=== PATIENT | male | born 1980 | race Caucasian/White ===

== ENCOUNTER 2018-01-04 15:57 | Inpatient (IN) | payer OTHER ==
[~2018-01-04] VITALS: Ht 190.5 cm; Wt 73.5 kg
[2018-01-04 16:00] VITALS: BP 112/68
--- NOTE | 2018-01-04 16:09 | NUR ---
[place] [employer] CALLED, PT COMBATIVE. HANDCUFFED TO BED BEFORE GALINDO GIVEN RESTRAINTS APPLIED WITH HELP OF SECURITY AND PD OFFICER
--- NOTE | 2018-01-04 16:19 | NUR ---
[place] STAFF REGISTERED NURSE NOTIFIED OF PT'S STATEMENT OF "THEY'RE ALL " AND SAID A WELFARE CHECK WILL BE PLACED WITH [facility]
[2018-01-04 16:42] LABS: HEMATOCRIT 44.4 % (42.0-52.0); HEMOGLOBIN 14.7 gm/dL (14.0-18.0); MCH 31.9 pg (26.0-34.0); MCHC 33.2 g/dL (28.0-37.0); MCV 96.3 fL (80.0-100.0); MPV 8.4 fl. (7.2-11.1); RBC 4.61 mil/uL (4.50-6.00); RDW-CV 13.9 % (10.5-14.5); WBC 11.7 thou/uL (4.0-11.0)
[2018-01-04 16:59] LABS: ANION GAP < 0 mmol/L (7-16); BUN 18 mg/dL (7-18); CALCIUM 8.7 mg/dL (8.5-10.1); CHLORIDE 100 mmol/L (98-107); CO2 29 mmol/L (21-32); CREATININE 0.9 mg/dL (0.6-1.3); GLUCOSE 103 mg/dL (70-99); POTASSIUM 3.3 mmol/L (3.5-5.1); SODIUM 123 mmol/L (136-145)
[2018-01-04 17:04] LABS: ALBUMIN 3.7 g/dL (3.4-5.0); ALKALINE PHOSPHATASE 79 U/L (46-116); SGOT 39 U/L (15-37); SGPT 32 U/L (30-65); TOTAL BILIRUBIN 0.2 mg/dL (<0.1-1.0)
[2018-01-04 17:14] LABS: ALCOHOL 305 mg/dL (<10); SALICYLATE 4.2 mg/dL (2.8-20.0)
[2018-01-04 17:16] LABS: ACETAMINOPHEN < 2 ug/mL (10-30)
[2018-01-04 17:20] LABS: URINE BILIRUBIN NEGATIVE (Negative); URINE BLOOD NEGATIVE (Negative); URINE CLARITY CLEAR; URINE COLOR YELLOW; URINE GLUCOSE-RANDOM NEGATIVE (Negative); URINE KETONES NEGATIVE (Negative); URINE LEUKOCYTES NEGATIVE (Negative); URINE NITRITE NEGATIVE (Negative); URINE PROTEIN NEGATIVE (Negative); URINE SPECIFIC GRAVITY <= 1.005 (1.005-1.030); URINE UROBILINOGEN 0.2 E.U./dl (0.2-1.0)
[2018-01-04 17:27] LABS: AMP/METHAMP POSITIVE (Negative); BARBITURATES Negative (Negative); BENZODIAZEPINES Negative (Negative); COCAINE Negative (Negative); METHADONE Negative (Negative); OPIATES Negative (Negative); PCP Negative (Negative); THC Negative (Negative)
[2018-01-04 21:19] VITALS: BP 126/83
--- NOTE | 2018-01-04 21:32 | NUR ---
PATIENT ARRIVED TO UNIT @ 2118. PT DROWSY, AGITATED REFUSING TO KEEP EYES OPEN AND ANSWER ADMITING QUESTIONS PT YELLED "LEAVE ME ALONE LET ME I AM DONE ANSWERING ANYMORE QUESTIONS" PT ABLE STATE NAME, , YEAR, MONTH NOT ABLE TO STATE DAY OF THE WEEK. PT VITAL SINGS WITHIN RANGE. ON ROOM AIR O2 SAT 99%. WILL CONTINUE TO MONITOR CLOSELY SITTER IN ROOM.
[2018-01-04 21:42] VITALS: BP 107/69
[2018-01-04 22:04] VITALS: BP 107/61
[2018-01-05] VITALS (16 sets, daily range): BP systolic 97–125; BP diastolic 53–80
[2018-01-05 05:07] LABS: HEMATOCRIT 40.4 % (42.0-52.0); HEMOGLOBIN 13.1 gm/dL (14.0-18.0); MCH 31.1 pg (26.0-34.0); MCHC 32.3 g/dL (28.0-37.0); MCV 96.2 fL (80.0-100.0); MPV 8.5 fl. (7.2-11.1); RBC 4.2 mil/uL (4.50-6.00); RDW-CV 14.1 % (10.5-14.5); WBC 7.6 thou/uL (4.0-11.0)
--- NOTE | 2018-01-05 05:14 | NUR ---
PATIENT CURRENTLY SLEEPING IN BED WITH SITTER IN ROOM. PT CIWA SCORE NOW 10. LORAZEPAM GIVEN CIWA SCORE DECREASING. VITAL WNL. VOIDING ADEQUATELY PER BEDSIDE COMMODE. PT REFUSED SECOND IV LAST NIGHT PT STATED "JUST LEAVE ME ALONE I DONT WANT YOU TO TOUCH ME OR DO ANYTHING TO ME LET ME " PT RECIEVED EDUCTION ON RISKS. NEEDS FURTHER EDUCATION. BED TO LOWEST POSITION. SITTER IN ROOM. NO FURTHER CONCERNS VOICED AT THIS TIME.
[2018-01-05 05:31] LABS: CALCIUM 8.3 mg/dL (8.5-10.1); CREATININE 0.8 mg/dL (0.6-1.3); MAGNESIUM 2.2 mg/dL (1.8-2.4); PHOSPHORUS* 2.7 mg/dL (2.5-4.9); TOTAL BILIRUBIN 0.2 mg/dL (<0.1-1.0); TOTAL PROTEIN 5.9 g/dL (6.4-8.2)
[2018-01-05 08:58] LABS: POTASSIUM 3.8 mmol/L (3.5-5.1)
--- NOTE | 2018-01-05 10:32 | NUR ---
PT DROWSY. ALERT TO PERSON, PLACE, YEAR, MONTH. CIWA CHARTED. SCHEDULED PO ATIVAN ADMININSTERED. SITTER IN PLACE. VSS. AFEBRILE. FLUIDS CHANGED AND CONFIMRED WITH DR. WILL CONTINUE PLAN OF CARE.
--- NOTE | 2018-01-05 10:45 | NUR ---
PT.SLEEPING. CM DID NOT SPEAK WITH PT. NURSING SAID HE WAS NOT BEING VERY REPOSNSIVE TO QUETIONS OR CONVERSATION DUE TO HIS INTOXICATION. NO CONTACT INFORMATION FOR PT. ON DEMOGRAPHICS. ADMITTING AWARE AND ASK THAT WHEN PT.MORE REPONSIVE TO TRY TO OBTAIN THIS INFORMATION. PT.ALSO NEEDS SECOND AFFIDAVIT FOR CHART IF MAKING ANY SUICIDAL OR HOMICIDAL STATEMENTS/REMARKS.
[2018-01-05 11:16] LABS: POTASSIUM 4.2 mmol/L (3.5-5.1)
--- NOTE | 2018-01-05 11:29 | NUR ---
Nutrition: Consult received for poor intake. Pt admitted with SI, ETOH. Eating 90% BKFST. Albumin 3. , banana bag. Wt: 157#. No nutritional interventions at this time. Will get psych eval. Will follow per protocol.
[2018-01-05 14:11] LABS: POTASSIUM 3.8 mmol/L (3.5-5.1)
[2018-01-05 18:10] LABS: POTASSIUM 3.9 mmol/L (3.5-5.1)
--- NOTE | 2018-01-05 19:02 | NUR ---
SITTER IN PLACE THIS SHIFT. PO ATIVAN ADMINISTERED PER EMAR. CIWAS CHARTED. STARTING AT 1830 PT ASKING FOR MEDICATION TO HELP CALM HIM DOWN. PO AND IV ATIVAN ADMINISTERED PER EMAR. PT UP SBA TO BSC.
[2018-01-06 01:23] VITALS: BP 118/67
[2018-01-06 02:53] VITALS: BP 113/84
[2018-01-06 04:23] VITALS: BP 112/71
--- NOTE | 2018-01-06 05:41 | NUR ---
PATIENT SLOWLY PROGRESSING. ORIENT X4, VS WNL, CIWA 13 PT STATES HE IS SEEING A LITTLE BOY IN HIS ROOM BUT ACKNOWLEDGES HE IS HALLUCINATING, CONTINUES EXPERIENCING RINGING IN EARS, SKIN FEELS ITCHY AND PT IS VERY ANXIOUS. ATIVAN GIVEN PER PROTOCOL. ADDED NICOTINE PATCH THIS A.M PER PATIENT REQUEST. VOIDS PER URNAL. NEW IV STARTED D5 WATER RUNNING. CURRENTLY PT IS SLEEPING, SITTER IN ROOM. BED TO LOWEST POSITION. WILL CONTINUE TO MONITOR.
[2018-01-06 06:57] LABS: HEMATOCRIT 39.1 % (42.0-52.0); HEMOGLOBIN 12.9 gm/dL (14.0-18.0); MCH 31.2 pg (26.0-34.0); MCHC 32.9 g/dL (28.0-37.0); MCV 94.7 fL (80.0-100.0); MPV 8.6 fl. (7.2-11.1); RBC 4.12 mil/uL (4.50-6.00); RDW-CV 13.4 % (10.5-14.5); WBC 6.8 thou/uL (4.0-11.0)
[2018-01-06 07:13] LABS: ALBUMIN 2.8 g/dL (3.4-5.0); CALCIUM 8.2 mg/dL (8.5-10.1); CREATININE 0.9 mg/dL (0.6-1.3); MAGNESIUM 1.9 mg/dL (1.8-2.4); POTASSIUM 3.6 mmol/L (3.5-5.1); TOTAL BILIRUBIN 0.6 mg/dL (<0.1-1.0); TOTAL PROTEIN 5.6 g/dL (6.4-8.2)
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
[2018-01-06 20:00] VITALS: BP 115/61
[2018-01-06 21:00] VITALS: BP 122/72
[2018-01-06 22:00] VITALS: BP 128/80
[2018-01-07] VITALS: BP 128/89
[2018-01-07 02:00] VITALS: BP 128/88
[2018-01-07 04:00] VITALS: BP 110/61
[2018-01-07 04:45] LABS: POTASSIUM 3.8 mmol/L (3.5-5.1)
[2018-01-07 10:55] VITALS: BP 120/81
--- NOTE | 2018-01-07 11:19 | NUR ---
RECEIVED REPORT FROM BRITNEY IN ICU AND ASSUMED CARE OF PT @ 3249.PT IS A/O X4 BUT STATES HE IS ANXIOUS AND REQUESTED ATIVAN.PT WAS EDUCATED ON NEXT AVALIABLE TIME HE COULD RECEIVE IT.VSS,TRACING SR ON THE MONITOR.ASSESSMENT FROM PREVIOUS NURSE REVIEWED AND THIS NURSE AGREES.IV RIGHT WRIST PATENT WITH FLUIDS INFUSING PER ORDERS.IV LEFT WRIST DC DUE TO INFILTRATION.PT IS CALM AND COOPERATIVE WITH NO C/O PAIN AT TIME OF ASSESSMENT.PT IS UP WITH SBA TO BATHROOM.SITTER MAINTAINED FOR SI PRECAUTIONS.PT LEFT RESTING IN BED WITH CALL LIGHT AND FALL PRECAUTIONS IN PLACE.WILL CONTINUE TO MONITOR.
[2018-01-07 16:00] VITALS: BP 112/78
--- NOTE | 2018-01-07 18:09 | NUR ---
VSS,CARDIAC MONITORING IN PLACE WITH NO CHANGES.CIWA COMPLETED PER ORDERS.PT IS HAVING INCREASED ANXIETY AND AGITATION-PRN ATIVAN GIVEN.C/O PAIN IN LEFT UPPER ARM-MANAGED WELL WITH PO MEDICATIONS.IV PATENT WITH MULTIVITAMIN BAG INFUSING PER ORDERS.SITTER MAINTAINED FOR SI.TELE PSYCH COMPLETED WITH RECOMMENDATIONS FOR INPATIENT PSYCH.HOURLY ROUNDING COMPLETED FOR PT SAFETY.CALL LIGHT AND FALL PRECAUTIONS IN PLACE.WILL CONTINUE TO MONITOR FOR DURATION OF SHIFT.
[2018-01-07] MEDS ORDERED: SEROQUEL200 MG PO (19:47)
[2018-01-07 20:00] VITALS: BP 114/72
[2018-01-08 00:14] VITALS: BP 138/81
--- NOTE | 2018-01-08 03:59 | NUR ---
PT ALERT ORIENTED. PT CALLING OUT FOR PAIN MEDICATION AND ATIVAN WHEN EVER AWAKE. HEALING L UPPER ARM WOUND FROM TATOO. R UPPER ARM CLEANSED WITH WOUND TRANSMISSION SUPERVISOR AND KERLEX WRAPPED. PT GETTING HYDROCODONE FOR PAIN. PT REQESTING DR BE WOKE FOR MORE PAIN MEDICATION. PT ALSO GETTING ATIVAN FOR CIWA. PT SLEEPING AND APPEARS TO BE VERY MEDICATED. TELEMETRY SHOWS SR. ON RA.
[2018-01-08 04:15] VITALS: BP 123/68
--- NOTE | 2018-01-08 04:24 | NUR ---
PT PICKING AT WOUND. PT REMINDED THAT HIS FINGERNAILS ARE DIRTY AND NOT TO PICK AT WOUND BED. PINK GRANULATED TISSUE. DOES NOT HAVE APPERANCE OF INFECTION AT THIS TIME. DRSG APPLIED. PT REMOVED. NEW DRSG APPLIED.
--- NOTE | 2018-01-08 06:23 | NUR ---
1:1 sitter with pt all through out this shift. Suicide precautions in place. D5 infusing at 50mls/hr.
[2018-01-08 08:15] VITALS: BP 121/85
--- NOTE | 2018-01-08 09:36 | NUR ---
PT BELIGERENT TO STAFF ASKING TO MAKE PHONE CALL. PT EDUCATED ON SUICIDE PRECAUTIONS AND INFORMED HE CANNOT HAVE PHONE. PT PROVIDED PHONE NUMBER FOR HIS NUMBER BUT THAT NUMBER HAS BEEN DISCONNECTED.PT ASKING THAT HIS CONSULTANT [employer]LECT[employer] AT [facility] BE CALLED. WILL NOTIFY CASE MANAGEMENT. PT ASKING TO LEAVE. INFORMED PT HE IS SI AND CANNOT SIGN OUT AMA
--- NOTE | 2018-01-08 10:11 | NUR ---
SPOKE WITH PT'S MOTHER IVA LAW PER HIS REQUEST. MOTHER GIVEN A BRIEF OVERVIEW OF WHY PT IS IN HOSPITAL AND PLAN. MOTHER TO CALL BACK WITH A LIST OF PT'S HOME PSYCH MEDS.
--- NOTE | 2018-01-08 11:13 | NUR ---
PT CONTINUALLY CALLS FOR ANXIETY AND PAIN MEDS DESPITE BEING GIVEN MEDS ORDERED
--- NOTE | 2018-01-08 11:25 | NUR ---
WOUND CARE NOTE: CONSULT RECEIVED FOR AN INFECTED TATTOO. PATIENT PRESENTS WITH MULTIPLE OPEN LESIONS TO THE LEFT LATERAL UPPER ARM. PATIENT HAS RECENTLY OBTAINED A TATTOO IN THE SAME LOCATION. COMPARED TO THE PHOTOS ON CHART, INFLAMMATION TO ALEIDA-WOUND APPEARS TO HAVE RESOLVED. PATIENT NOW HAS MULTIPLE LESIONS TO THIS AREA, CLUSTERED ARE MEASURED 7.5X7X0.2. PINK, MOIST GRANULAR TISSUE NOTED, APPEARS TO BE HEALING WELL. ALEIDA-WOUND DOES HAVE SCABS. GENTLY CLEANSED THE WOUNDS, PATTED DRY. APPLIED OPTIFOAM AG AND SECURED WITH ROLL GAUZE. EDUCATED PATIENT ON LEAVING DRESSING IN PLACE. WHEN ENTERING ROOM FOR WOUND ASSESSMENT, PATIENT HAD REMOVED HIS DRESSING. PATIENT COMMUNICATED UNDERSTANDING, BUT COMPLAINS OF PAIN TO THIS AREA. PATIENT DOES NOT FEEL THAT HIS PAIN/ANXIETY ARE BEING WELL CONTROLLED AND STATED IF THEY WEREN'T HE WOULD JUST LEAVE. NOTIFIED PATIENT'S RN AND PHYSICIAN. RECOMMEND ENCOURAGE GOOD NUTRITION/HYDRATION ENCOURAGE SMOKING CESSATION Q3 DAY DRESSING CHANGES
[2018-01-08 12:00] VITALS: BP 137/85
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
--- NOTE | 2018-01-08 13:38 | NUR ---
AMMUNITION ASSEMBLY II LABORER INFORMED THAT THE PATIENT IS MEDICALLY STABLE AND READY TO TRANSFER TO INPATIENT PSYCH. PATIENT INFORMS THAT HE HAS A HX AT [facility] AND ALSO HAS A MANAGER ELIGIBILITY (DOMINICK) THERE. D/C GLOBE MOUNTER SPOKE TO MARY KAY WITH [facility] AND SHE INFORMS THAT [facility] NOT CURRENTLY HAVE BED AVIALABILITY, BUT WILL ACCEPT THE REFERRAL IN-CASE A BED BECOMES AVAILABLE LATER ON TODAY. D/C GLOBE MOUNTER ALSO SPOKE TO FARSHAD WITH [facility]. FARSHAD INFORMS THAT THE FACILITY HAS BED AVIALABILITY. D/C NIURKA SPOKE TO ABEL WITH [facility] AND SHE INFORMS THAT THE FACILITY HAS BED AVAILABILITY. D/C GLOBE MOUNTER FAXED PATIENT'S FACESHEET, E.R. SUMMARY, H&P, PROGRESS NOTE, VITALS, LABS, AND MED LIST TO [facility], AND [facility]. CM WILL REMAIN AVAILABLE TO ASSIST AND FOLLOW NEEDED.
--- NOTE | 2018-01-08 14:00 | NUR ---
PT ASKING FOR "DILAUDID OR SOMETHING STRONGER" FOR PAIN AND "SOMETHING STRONGER THAN ATIVAN". DR WEI AWARE. NO CHANGES MADE TO PAIN MEDICATIONS
[2018-01-08] MEDS ORDERED: VISTARIL 25 MG25 M1 PO (14:50)
[2018-01-08] MEDS ORDERED: QUETIAPINE FUM100 MG PO (14:50)
[2018-01-08] MEDS ORDERED: NEURONTIN 300300 M1 PO (14:51)
--- NOTE | 2018-01-08 14:51 | NUR ---
SPOKE WITH PT'S MOTHER IVA WHO PROVIDED A LIST OF PT'S HOME MEDICATIONS. SHE VOICES CONCERNS OVER PT BEING GIVEN "ADDICTIVE" PAIN AND ANXIETY MEDICATIONS.
[2018-01-08 15:30] VITALS: BP 125/75
--- NOTE | 2018-01-08 15:40 | NUR ---
PT BELIGERENT TO STAFF REQUESTS ADDITIONAL PAIN MEDICATIONS. INFORMED PT AFTER DISCUSSION WITH NO ADDITIONAL PAIN MEDS WILL BE GIVEN. PT ENCOURAGED TO REFRAIN FROM TOUCHING DRESSING TO LEFT ARM HE CONTINUES TO REMOVE IT. "IT HURTS! I'M ABOUT TO BANG MY HEAD AGAINST THE FUCKING WINDOW!" INFORMED PT THAT IF HE ATTEMPTS TO HURT HIMSELF HE WILL BE RESTRAINED FOR SAFETY. SITTER REMAINS AT BS. MEDS GIVEN ORDERED
--- NOTE | 2018-01-08 16:15 | NUR ---
PT YELLING AT STAFF. ASKING TO CALL HIS MOTHER. PT INSTRUCTED THAT HE CANNOT HAVE A PHONE HE IS ON SI PRECAUTIONS. PT'S MOTHER IS AWARE OF ROOM NUMBER BUT HAS NOT VISITED.PT REQUESTING ADDITIONAL PAIN MEDS AND ANXIETY MEDS. ACCUSING STAFF OF GIVING HIM "SUGAR PILLS" . PT INSTRUCTED THAT MEDS WERE OPENED AT AND GIVEN DIRECTED. PT INSISTING THAT DR BE CALLED AND ASKED FOR ADDITIONAL PAIN MEDS. DR WEI IS AWARE OF REQUEST BUT PAGED. INFORMED PT THAT MAY NOT BE AVAILABLE TO COME TO HIS ROOM AND TALK TO HIM HE MAY NOT BE IN THE HOSPITAL
--- NOTE | 2018-01-08 16:59 | NUR ---
PT UP IN ROOM WITH STEADY GAIT. SITTER REMAINS AT BS FOR SAFETY. PT CONTINUES TO REPORT PAIN TO LUE AND ANXIETY. PT MANIPULATIVE TO STAFF. TOLERATING PO WELL.
--- NOTE | 2018-01-08 17:47 | NUR ---
PT REQUESTING IVF BE TURNED OFF. PT TOLERATING PO WELL
[2018-01-08 20:00] VITALS: BP 124/75
--- NOTE | 2018-01-09 02:21 | NUR ---
ASSUMED CARE OF PATIENT AT 1900. VSS, AFEBRILE. PATIENT ANIXOUS, AGITATED, RESTLESS, CONSUMED WITH THE IDEA THAT HE IS CRAVING ICE CREAM. WHEN ASKED ABOUT SUICIDAL IDEATION, HE STATES HE IS BECAUSE HE IS "SAD". CANNOT IDENTIFY WHY. ASKED IF HE HAD A PLAN, HE STATED "NOT YET". PRN ANXIETY AND PAIN MEDS GIVEN, FELL ASLEEP AT ABOUT 2300. SITTER AT BEDSIDE. NEEDS CONSTANT REASSURANCE WHEN AWAKE. WHEN ASKED ABOUT PLANS FOR SOBRIETY AFTER DISCHARGE HE STATES THAT HE MIGHT CONSIDER OUTPATIENT. ASKED IF HE LIVED ANYWHERE AND HE SAID HE LIVED IN A TRANSITIONAL HOUSE. NOT PROGRESSING TOWARDS POC GOALS. WILL CONTINUE TO MONITOR.
[2018-01-09 04:00] VITALS: BP 128/68
--- NOTE | 2018-01-09 09:17 | NUR ---
SPOKE WITH PT TO VERIFY HIS SSN AND ADDRESS. INFO PROVIDED. 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 WILL CALL TO SEE WHAT PLAN IS IN PLACE FOR PT. PT REQUESTS THAT PAPERWORK BE FAXED TO [facility] IN [facility] HE HAS BEEN THERE IN THE PAST
--- NOTE | 2018-01-09 11:14 | NUR ---
RECEIVED CALL FROM [facility], THEY DECLINED PT. CM CALL TO [facility], STILL HAVE NO BEDS. CALLS AND FAXED REFERRALS TO [facility] AND [facility]. AWAIT CALLS BACK
[2018-01-09 11:23] VITALS: BP 133/80
[2018-01-09 15:24] VITALS: BP 139/75
--- NOTE | 2018-01-09 15:47 | NUR ---
CALLED AND FAXED REFERRAL TO [facility] [place] [phone] FAX [phone] AWAIT CALL BACK FROM [facility] [phone] FAX [phone] PAGE OUT TO LEFTY PSYCH AGAIN ALSO DENIALS: [facility], [facility] ([facility] AND [facility]), [facility] (NO BEDS), [facility]. [facility] HAS HAD NO BEDS YESTERDAY OR TODAY [facility] DOESN'T TAKE PRIVATE PAY.
--- NOTE | 2018-01-09 18:39 | NUR ---
PATIENT RESTING IN ROOM WITH 1:[address] FOR SI[address] PATIENT AWAITKNG INPATIENT PSYCH TRANSFER. VITAL SIGNS STBALE NAD HOURLY ROUNDING COMPLETED FOR PATINET SAFETY. PATIETN FREQUENTLY CALLS OUT FOR ANXIETY MEDICATION AND PAIN MEDICATION. PATIENT NEEDED FREQUENT REORIENTATION TO MAINTAIN CALM AND APPROPRIATE INTERACTIONS WITH STAFF. NO INCIDENCE OF NEEDED SECURITY HELP TODAY PATIENT WAS COOPERATIVE.
[2018-01-09 19:37] VITALS: BP 144/78
[2018-01-10] VITALS (7 sets, daily range): BP systolic 97–138; BP diastolic 52–95
--- NOTE | 2018-01-10 02:09 | NUR ---
ASSUMED CARE OF PATIENT AT 1900. VSS, AFEBRILE. ANXIOUS, AGITATED AT TIMES. FREQUENTLY REQUESTING PAIN MEDS AND ANXIETY MEDS. BECOMES HOSTILE AT TIMES, DIFFICULT TO REDIRECT AT TIMES. SITTER AT BEDSIDE. POC GOALS DISCUSSED. WILL CONTINUE TO MONITOR CLOSELY.
--- NOTE | 2018-01-10 09:07 | NUR ---
SPOKE WITH MARYSE/[facility]. FAXED UPDATED CLINICAL TO HER. SHE STATED SHE WOULD HAVE AN ANSWER AFTER 10AM
--- NOTE | 2018-01-10 09:16 | NUR ---
RECEIVED REPORT FROM KAROLINA AND ASSUMED CARE OF PT @ 0802.PT IS A/O X4,VSS,TRACING SR ON THE MONITOR.ASSESSMENT CHARTED.IV LEFT FOREARM PATENT WITH IVF INFUSING PER ORDERS.SITTER MAINTAINED.SI PRECAUTIONS IN PLACE. PT IS ANXIOUS AND AGITIATED-MEDICATIONS GIVEN AND INFORMED OF PLAN OF CARE.PT COMMUNICATES UNDERSTANDING BUT NEEDS REINFORCEMENT.PT KEEPS ASKING TO HAVE HIS CELL PHONE-NURSE KEEPS REEDUCATING PT ON THE SI PROTOCOL.PT C/O PAIN IN LEFT UPPER ARM-MEDICATIONS GIVEN.PT IS UP SBA IN ROOM. PT LEFT RESTING IN BED WITH CALL LIGHT AND FALL PRECAUTIONS IN PLACE.WILL CONTINUE TO MONITOR.
[2018-01-10] MEDS ORDERED: BACTRIM DS TAB1 EACH PO (10:53)
[2018-01-10] MEDS ORDERED: NORCO 5-325 TA1 EACH PO (10:54)
[2018-01-10] MEDS ORDERED: CELEXA20 MG PO (11:04)
--- NOTE | 2018-01-10 13:17 | NUR ---
PER REPEAT PSYCH CONSULT, PT STILL IN NEED OF INPT. HE IS AGREEABLE TO PER MIAH CISNEROS. CALLS AND REFERRALS TO THE FOLLOWING: [facility], THEY DECLINED [facility], THEY DECLINED [facility], THEY ARE FULL [facility], THEY ARE FULL [facility], REFERRAL FAXED AT 1205 [facility], REFERRAL FAXED AT 1230 JOSHUA GUSTAVO [facility], REFERRAL FAXED AT [address] WEI
--- NOTE | 2018-01-10 15:11 | NUR ---
TELE PSYCH RECONSULTED.PSYCH STILL RECOMMENDING INPATIENT PLACEMENT.PT MADE MED-SURG STAUTS.PT GETTING MORE ANXIOUS AND AGITATED THROUGHOUT SHIFT.PT HAS STATED HE WAS GOING TO GO OUTSIDE TO SMOKE ALL MORNING.NURSE EDUCATED PT ON SI PRECAUTIONS AND HOSPITAL POLICIES.PT ABLE TO BE REDIRECTED AT THAT TIME.PT REQUESTING DOCTOR TO BE CALLED TO ORDER HIM SOMETHING TO HELP HIM "CHILL OUT".PT BEGAN TO RAISE VOICE AND JUMPED OUT OF BED AND STATED HE WAS LEAVING.MARY HARRINGTON CALLED.NURSE WAS ABLE TO CALM PT AND GET HIM BACK IN BED.DOCOTOR NOTIFIED OF EVENT.NEW ONETIME MEDICATION ORDERS RECEIVED.PT RESTING IN BED WITH SITTER IN PLACE.
--- NOTE | 2018-01-10 18:02 | NUR ---
VSS,MED-SURG STATUS.SITTER MAINTAINED.SI PRECAUTIONS IN PLACE. SECURITY CALLED TO DISCUSS WITH PT THAT HE CANT LEAVE AND CANT MAKE PHONE CALLS.CASEMANAGEMENT HAS SEVERAL PLACEMENT REQUESTS OUT.HOURLY ROUNDING COMPLETED FOR PT SAFETY.CALL LIGHT AND FALL PRECAUTIONS IN PLACE. WILL CONTINUE TO MONITOR FOR DURATION OF SHIFT.
--- NOTE | 2018-01-11 03:38 | NUR ---
RECIEVED REPORT AND ASSUMED CARE AT 1900. BP LOW, OTHER THAN THAT VITAL SIGNS STABLE. PT UP WITH STAND BY ASSIST, HAS SITTER IN ROOM. ASSESSMENT COMPLETED AND DISCUSSED PLAN OF CARE AND PT UNDERSTANDS. PT KEPT WANTING TO GO OUT AND SMOKE AND WANTING TO CALL FAMILY TO BRING HIM SMOKES. PT C/O ANXIETY AND PRN MEDS GIVEN ORDERED. PT ON RA. PAIN C/O LEFT ARM PAIN FROM SKIN INFECTION DUE TO HOME TATTOO. BED LOCKED AND SITTER WTIH PT IF HE NEEDS ANYTHING. HOURLY ROUNDING DONE AND ALL NEEDS MET. NURSING WILL CONTINUE TO MONITOR.
--- NOTE | 2018-01-11 09:01 | NUR ---
HOSPICE ADMINISTRATOR CALLED TO F/U ON REFERRALS SENT TO INPATIENT PSYCH: [facility]-NO ANSWER. D/C LOGISTICS ENGINEER LEFT MESSAGE TO RETURN CALL. [facility] PSYCH-SPOKE TO NICOLAS 'PATIENT IS OUT OF THE ENCATCHMENT AREA, BUT MARCO HOGAN WILL RETURN CALL TO DISCUSS FURTHER'. [facility]-SPOKE TO HAYLIE 'DECLINED D/T ACU[facility]'. [facility] INTAKE-NO ANSWER, LEFT MESSAGE TO RETURN CALL. CM WILL REMAIN AVAILABLE TO ASSIST AND FOLLOW NEEDED.
--- NOTE | 2018-01-11 09:22 | NUR ---
CONTINUE TO FOLLOW, DISCUSSED WITH DR CAGE. HAVE BEEN UNABLE TO FIND INPT PSYCH PLACEMENT. CALLS PENDING FROM YESTERDAY RETURNED AND: [facility], PT IS OUT OF THEIR CATCHMENT AREA [place]-NO RETURN CALL, HAVE LEFT ANOTHER MESSAGE [facility] IN [place]- NO BEDS, MAY HAVE SOME LATER, CAN CALL AFTER 2PM WAS ABLE TO TALK WITH PT'S INSPECTOR WREATH AT [facility]/DOM[facility]. SHE STATED THEY HAVE DISCHARGED PT. SHE REPORTS THAT HE HAS BEEN WITH THEIR SERVICE FOR A YEAR OR MORE, THAT HE HAS A 'TYPICAL CYCLE' OF STAYING SOBER IN A SOBER LIVING HOUSE, FINDING WORK AND THEN LEAVING WHEN IT'S TIME TO 'PAY HIS SHARE.' STATES HE LEFT THE [facility] ON 12/29. SHE STATES HIS 'PATTERN' IS THEN TO DRINK ETOH AND STATE HE IS 'SUICIDAL' AND GET ADMITTED TO HOSPITAL. DOMINICK STATED PT HAS BEEN IN 'EVERY' PSYCH FACILITY AND SOBER HOUSE IN THE AREA OVER THE LAST FEW YEARS. HE HAS A SUPPORTIVE MOTHER WHO MAY BE AN 'ENABLER' AND IS WELL LIKED IN THE 'SOBER LIVING' COMMUNITY. SHE THOUGHT THE [facility] MAY BE WILLING TO TAKE PT BACK. SHE STATED PT HAS NUMBER TO CONTACT THEM, SHE DID NOT AT THIS TIME. DOMINICK DID SUGGEST CALLING [facility]. CALL PLACED TO THEM, SPOKE WITH 'T'. SHE STATED THEY ONLY TAKE PT'S FROM THE ER, NOT ACUTE BUT WERE FAMILIAR WITH PT. WILL TALK WITH PT MORE ABOUT HIS PLANS AND CONTINUE TO TRY TO FIND PLACEMENT.
--- NOTE | 2018-01-11 10:00 | NUR ---
SPOKE TO DR CAGE RE: NEED FOR SITTER.PER DR CAGE PT IS ABLE TO LEAVE AMA PSYCH STATED IN THEIR NOTE HE IS CAPICIATED TO MAKE MEDICAL DECISIONS. PT DENIES SI/HI. CALM AND COOPERATIVE
--- NOTE | 2018-01-11 11:06 | NUR ---
ASSUMED PATIENT CARE @ 0745. PT ARRIVED ON BED. ORIENTED TO ROOM. CONSTANT OBSERVATION-1:1. SI PRECAUTIONS NOTED. PT GIVEN BREAKFAST. NURSING TO CONTINUE TO MONITOR.
[2018-01-11 12:05] VITALS: BP 114/66
--- NOTE | 2018-01-11 16:01 | NUR ---
CALLS BACK TO [facility], STILL FULL [facility], STILL FULL [facility]. SPOKE WITH SHIRA. SHE TOOK INFO AND ASKED THAT DR CAGE CALL TO SPEAK WITH THEIR DR. HE DID AND PT HAS BEEN ACCEPTED TO DR ALONSO. WILL GO TO [place] [address] [place] [id number]AGE AND NEW ORDERS UPDATED WT MEDICATION CHANGES SHIRA TO CALL BACK WITH NUMBER TO REPORT AND BED SOON. PT AGREEABLE SIGNED COBRA FORM. AMBULANCE FORM FILLED OUT AND FAXED TO [facility]. CALL TO MOM TO UPDATE AND GIVE INFO AND MAKE HER AWARE PT WILL NEED TRANSPORTATION HOME AT [place]. SHE WAS PLEASED HE WAS GOING FOR PLACEMENT
--- NOTE | 2018-01-11 16:03 | NUR ---
PT'S PASTORAL COUNSELOR AT [facility] IS FAUST[place] [phone] MOTHER IS IVA DAILY [phone] [facility] CONTACT-[facility] [phone]
[2018-01-11 16:25] VITALS: BP 115/72
[2018-01-11 16:39] VITALS: BP 136/87
[2018-01-11] MEDS ORDERED: HYDROCODONE-AP1 EAC6 PO (16:43)
--- NOTE | 2018-01-11 16:44 | NUR ---
SPOKE WITH [facility]. THEY HAVE ARRANGED LONG DISTANCE TRANSPORT AND WILL PICK PT UP AT 5PM. NOTIFIED NURSE AND SHE HAS NUMBER TO CALL REPORT TO [phone]
[2018-01-11] MEDS ORDERED: IBUPROFEN 200200 M1 PO (16:54)
[2018-01-11] MEDS ORDERED: LIDOCAINE PLUS120 GM TOP (16:55)
[2018-01-11] MEDS ORDERED: PRENATAL TABLE1 EAC2 PO (16:56)
[2018-01-11] MEDS ORDERED: PEPCID20 MG PO (16:57)
[2018-01-11] MEDS ORDERED: B-1100 MG PO (16:57)
--- NOTE | 2018-01-11 17:33 | NUR ---
PT IS ALERT AND ORIENTED X 4. HAS BEEN SLEEPING DURING AM. RECEIVED PO PAIN MEDICATION FOR PAIN CONTROL. VS STABLE. PT TAKEN OFF SI PRECAUTIONS. REPORT CALLED TO JANETH @ [facility] @ 4319. IV REMOVED. PT LEFT FOR [facility] @ 5418 BY AMBULANCE TRANSPORT WITH PATIENT INFORMATION ENVELOPMENT AND PATIENT PERSONAL BELONGINGS.
[2018-01-11 17:39] VITALS: BP 136/87
== END 2018-01-11 17:12 | DRG 641 ==
LOC: M.ERS 15:57 → M.2W 18:19 → M.ICU 18:19 → M.ORTHSURG 18:19 → M.TBA-ER 18:19 → M.ICU 21:11 → M.2W 01-07 11:00 → M.ORTHSURG 01-11 07:35
PROVIDERS: Personal Emergency Response Attendant; ADMIT Internal Medicine
DX: E87.1 Hypo-osmolality and hyponatremia (principal); F10.929 Alcohol use, unspecified with intoxication, unspecified; F17.210 Nicotine dependence, cigarettes, uncomplicated; E87.8 Other disorders of electrolyte and fluid balance, not elsewhere classified; L03.90 Cellulitis, unspecified; B95.4 Other streptococcus as the cause of diseases classified elsewhere; E87.0 Hyperosmolality and hypernatremia; Z79.899 Other long term (current) drug therapy